=== PATIENT | male | born 1950 ===

== ENCOUNTER 2024-06-16 14:27 | Emergency (ER) | payer OTHER, SELFPAY ==
[2024-06-16 14:40] VITALS: BP 140/82; PULSE 89; RESP 16; TEMP 37.1; O2SAT 97; BMI 23.0
[2024-06-16 16:32] VITALS: BP 157/92; PULSE 78; O2SAT 96
[2024-06-16 17:00] VITALS: BP 131/77; PULSE 69; O2SAT 95
[2024-06-16 17:30] VITALS: BP 144/81; PULSE 69; O2SAT 96
[2024-06-16 18:00] VITALS: BP 138/65; PULSE 64; O2SAT 95
--- NOTE | 2024-06-16 18:19 | ED_ITS ---
HPI - Recheck/Abnormal Lab/Rx General Chief Complaint: Recheck/Abnormal Lab/Rx Stated Complaint: Blood clots left groin iliac femorral per report Time Seen by Provider: 06/16/24 18:11 Source: patient Mode of arrival: Ambulatory History of Present Illness HPI narrative: Patient is a 73-year-old male. 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 Was on Eliquis for approximately 3 months. This was several years ago. Had follow-up studies which showed that the clot had resolved. He was not currently on any anticoagulation. Several days ago had a MRI performed of his pelvic region. This was secondary to workup of potential prostate cancer. This was ordered by his urologist. He saw the results of the MRI which showed a left lower extremity DVT. He did not receive a call from anyone regarding these results but found them on his own and decided to come to the emergency department for further evaluation. He denies chest pain, shortness of breath or lower extremity pain or swelling. Related Data Previous Rx's Medication Instructions Recorded apixaban 5 mg tablet (Eliquis) See Rx Instructions .Route 06/16/24 .COMPLEX #75 tabs Allergies Allergy/AdvReac Type Severity Reaction Status Date / Time No Known Drug Allergies Allergy Verified 06/16/24 14:40 Review of Systems Review of Systems ROS Unobtainable: All systems reviewed & are unremarkable except as noted in HPI and below Patient History Social History Smoking Status: Never smoker Smoking Status: Never smoker alcohol intake frequency: a few times a month Substance Use Type: does not use Exam Initial Vital Signs Initial Vital Signs: Vital Signs Temperature 98.8 F 06/16/24 14:40 Pulse Rate 89 06/16/24 14:40 Respiratory Rate 16 06/16/24 14:40 Blood Pressure 140/82 06/16/24 14:40 Pulse Oximetry 97 06/16/24 14:40 Oxygen Delivery Method Room Air 06/16/24 14:40 Const General: cooperative, comfortable and No ill appearing [facility] Head: normal to inspection and normocephalic Resp Effort & Inspection: normal respiratory effort Cardio Rate: regular rate Skin General: no rashes or lesions noted Extrem General: No edema Course Orders Ordered: ED Orders 06/16/24 18:19 US periph venous low extrem lt Stat 06/16/24 18:40 Basic Metabolic Panel Stat Complete Blood Count AUTO DIFF Stat PTT Partial Thromboplastin Sreekanth Stat Prothrombin Time INR Stat Discontinued Medications Apixaban (Apixaban 5 Mg Tablet) 10 mg PO NOW ONE Stop: 06/16/24 19:54 Last Admin: 06/16/24 20:09 Dose: 10 mg Documented By: KISHAN Vital Signs Vital signs: Vital Signs - 8 hr 06/16/24 18:00 06/16/24 18:00 06/16/24 18:30 Pulse Rate 64 Blood Pressure 138/65 142/74 H Pulse Oximetry 95 06/16/24 18:30 Pulse Rate 63 Blood Pressure Pulse Oximetry 95 MDM - Recheck/Abnormal Lab/Rx Lab Data Attestation: I reviewed the patient's lab results. 06/16/24 18:40 06/16/24 18:40 Labs: Lab Results 06/16/24 Range/Units 18:40 WBC 9.0 (4.5-11.0) X10^3/uL RBC 4.92 (4.5-5.9) X10^6/uL Hgb 15.8 (13.5-17.5) g/dL Hct 46.5 (41-53) % MCV 94.7 (80-100) fL MCH 32.1 (26-34) PG MCHC 33.9 (30-36) % RDW 13.8 (11.6-14.8) % Plt Count 211 (150-400) X10^3/uL Neut % (Auto) 65.7 (50-75) % Lymph % (Auto) 23.5 L (25-40) % [place] % (Auto) 8.2 (3-14) % Eos % (Auto) 1.9 L (2-4) % Baso % (Auto) 0.7 (0-2) % Neut # (Auto) 5900 (5438-3961) /uL Lymph # (Auto) 2100 (8283-1635) /uL [place] # (Auto) 700 (0-900) /uL Eos # (Auto) 200 (0-450) /uL Baso # (Auto) 100 (0-100) /uL PT 11.8 (9.4-12.5) SECONDS INR 1.0 (0.9-1.3) APTT 33 (25.1-36.5) SECONDS Sodium 138 (137-145) mmol/L Potassium 3.7 (3.4-5.1) mmol/L Chloride 105 (98-107) mmol/L Carbon Dioxide 27 (22-32) mmol/L BUN 20 (9-20) mg/dL Creatinine 1.00 (0.66-1.25) mg/dL Estimated GFR > 60 (>60) mL/min BUN/Creatinine Ratio 20.0 (6-22) Glucose 100 (80-110) mg/dL Calcium 9.1 (8.4-10.2) mg/dL Imaging Data US - DVT: Radiologist's Impression: PROCEDURE: US PERIPH VENOUS LOW EXTREM LT INDICATIONS: possible LLE DVT TECHNIQUE: Real-time imaging, as well as color and pulse Doppler interrogation, were performed of the lower extremity deep veins from the inguinal ligament to the popliteal fossa, with documentation of the visualized calf veins. COMPARISON: None. FINDINGS: Occlusive thrombus is seen within the common femoral, femoral and popliteal veins. The calf vessels are not visualized. Thrombus involves the greater saphenous vein adjacent to the confluence. There is extension into the left external iliac vein. IMPRESSION: Diffuse occlusive deep venous thrombus throughout the left lower extremity involving the left external iliac, common femoral, femoral, and popliteal veins as well as the superior portion of the greater saphenous vein. Findings were discussed with the referring provider, Dr. Taveras, by telephone on 06/16/2024 at 7:35 PM. MDM Narrative Medical decision making narrative: Ultrasound does show a left lower extremity DVT. His labs are unremarkable. No chest pain or shortness of breath. Plan will be to start him on Eliquis. First dose given here in the emergency department and prescription was sent to the pharmacy of his choice. I recommended that he contact his primary care doctor for follow-up and also the urologist who ordered the MRI. He was given return precautions. He expressed understanding and agreement with the plan. Discharge Plan Departure Patient Disposition: Home Clinical Impression: DVT of leg (deep venous thrombosis) Instructions: DI for Deep Vein Thrombosis Activity Restrictions/Additional Instructions: We are going to start you on a medicine called Eliquis. It was sent to [facility] per your request. To help with the cost of this medication you can look up? Eliquis co-pay card? this information and the numbers that are generated can dramatically help with the cost this medicine. I also recommend you contact your primary care doctor for a follow-up. Return to the emergency department for new or worsening symptoms. Prescriptions: New Eliquis 5 mg tablet See Rx Instructions .ROUTE .COMPLEX Qty: 75 0RF Rx Instructions: 10 MG PO BID for 7D then 5mg PO BID after Stand Alone Forms: Patient Portal/API/Survey
[2024-06-16 18:30] VITALS: BP 142/74; PULSE 63; O2SAT 95
[2024-06-16 18:54] LABS: Add Manual Diff / Slide Review NO; Basophils Absolute Auto 100 /uL (0-100); Basophils Percent Auto 0.7 % (0-2); Eosinophils Absolute Auto 200 /uL (0-450); Eosinophils Percent Auto 1.9 % (2-4); Hematocrit 46.5 % (41-53); Hemoglobin 15.8 g/dL (13.5-17.5); Lymphocytes Absolute Auto 2100 /uL (1100-4500); Lymphocytes Percent Auto 23.5 % (25-40); Mean Corpuscular HGB Conc 33.9 % (30-36); Mean Corpuscular Hemoglobin 32.1 PG (26-34); Mean Corpuscular Volume 94.7 fL (80-100); Monocytes Absolute Auto 700 /uL (0-900); Monocytes Percent Auto 8.2 % (3-14); Neutrophils Absolute Auto 5900 /uL (1500-7000); Neutrophils Percent Auto 65.7 % (50-75); Platelet Count 211 X10^3/uL (150-400); Red Blood Cell Count 4.92 X10^6/uL (4.5-5.9); Red Cell Distribution Width 13.8 % (11.6-14.8)
[2024-06-16 19:03] LABS: Prothrombin Time 11.8 SECONDS (9.4-12.5)
[2024-06-16 19:06] LABS: PTT Partial Thromboplastin Tim 33 SECONDS (25.1-36.5)
[2024-06-16 19:14] LABS: Blood Urea Nitrogen 20 mg/dL (9-20); Calcium 9.1 mg/dL (8.4-10.2); Carbon Dioxide 27 mmol/L (22-32); Chloride 105 mmol/L (98-107); Estimated Glomerular Filt Rate > 60 mL/min (>60); Glucose 100 mg/dL (80-110); HEMOLYSIS < 15 (0-50); Potassium 3.7 mmol/L (3.4-5.1); Sodium 138 mmol/L (137-145)
[2024-06-16] MEDS: APIXABAN 5 MG TABLET 10 MG PO (20:09)
== END 2024-06-16 20:13 | disposition home or self-care (01) ==
PROVIDERS: Emergency Provider Emergency Medicine
DX: I82.422 Acute embolism and thrombosis of left iliac vein (principal); Z79.01 Long term (current) use of anticoagulants
CPT/HCPCS: 36415; 80048; 85025; 85610; 85730; 93971; 99284